=== PATIENT | female | born 1945 | race Caucasian/White ===

== ENCOUNTER → 2024-04-12 10:09 | Outpatient (REF) | payer OTHER, SELFPAY | LOC: HWWDC 10:09 | PROVIDERS: ATTENDING PHYSICIAN Registered Nurse | DX: M85.80 Other specified disorders of bone density and structure, unspecified site (principal); Z12.31 Encounter for screening mammogram for malignant neoplasm of breast | CPT/HCPCS: 77063; 77067; 77080 ==

== ENCOUNTER → 2024-04-15 06:23 | Outpatient (REF) | payer OTHER, SELFPAY ==
[2024-04-15 09:24] LABS: % Basophils 0.8 % (0-2); % Immature Granulocytes 0.2 % (0-0.5); % Lymphocytes 35.7 % (20.5-51.1); % Monocytes 8.2 % (1.7-9.3); % Neutrophils 53.1 % (42.2-75.2); Absolute Eosinophils 0.1 10^3/uL (0-0.7); Absolute Lymphocytes 1.8 10^3/uL (1.2-3.4); Absolute Monocytes 0.4 10^3/uL (0.1-0.6); Absolute Neutrophils 2.7 10^3/uL (1.4-6.5); Hematocrit 43.6 % (37.0-47.0); Hemoglobin 14.6 g/dL (12.0-16.0); Mean Corp Hgb Conc. 33.5 g/dL (33.0-37.0); Mean Corpuscular Hgb 32.8 pg (27.0-31.0); Mean Platelet Volume 8.6 fL (7.4-10.4); Nucleated Red Blood Cells % 0 %; Platelet Count 235 10^3/uL (130-400); Red Blood Cell Count 4.45 10^6/uL (4.20-5.40); Red Cell Dist. Width 13.1 % (11.5-14.5)
[2024-04-15 10:43] LABS: ALT (SGPT) 20 U/L (0-35); AST (SGOT) 28 U/L (14-36); Albumin 4.6 g/dl (3.5-5.0); Alkaline Phosphatase 71 U/L (38-126); Blood Urea Nitrogen 22 mg/dl (7-17); Carbon Dioxide 26 mmol/L (22-30); Chloride 103 mmol/L (98-107); Glucose 90 mg/dl (70-99); HDL Cholesterol 93 mg/dl; LDL Cholesterol, Calculated 115 mg/dl; Potassium 4.1 mmol/L (3.5-5.1); Sodium 140 mmol/L (135-145); Total Bilirubin 0.5 mg/dl (0.2-1.3); Total Cholesterol 227 mg/dl (50-199); Triglyceride 98 mg/dl (10-149); Very Low Density Lipoprotein 19 mg/dl (0-30); eGFR > 60.00
[2024-04-15 10:56] LABS: Vitamin D, 25-OH*** 44.7 ng/mL (30-80)
[2024-04-15 11:10] LABS: TSH Reflex To Free T4 2.13 uIU/ml (0.47-4.68)
[2024-04-17 15:05] LABS: Intact PTH 92.2 pg/ml (13.6-85.8)
== END ==
LOC: HWLAB 06:23
PROVIDERS: ATTENDING PHYSICIAN Registered Nurse
DX: E78.2 Mixed hyperlipidemia (principal); M85.80 Other specified disorders of bone density and structure, unspecified site
CPT/HCPCS: 36415; 80053; 80061; 82306; 83970; 84443; 85025

== ENCOUNTER → 2024-08-05 10:43 | Outpatient (REF) | payer OTHER, SELFPAY ==
[2024-08-05 15:31] LABS: ALT (SGPT) 20 U/L (0-35); AST (SGOT) 28 U/L (14-36); Albumin 4.4 g/dl (3.5-5.0); Alkaline Phosphatase 89 U/L (38-126); Blood Urea Nitrogen 21 mg/dl (7-17); Calcium 9.8 mg/dl (8.4-10.2); Carbon Dioxide 30 mmol/L (22-30); Chloride 98 mmol/L (98-107); Creatine Phosphokinase 63 U/L (30-135); Glucose 79 mg/dl (70-99); Potassium 4.2 mmol/L (3.5-5.1); Sodium 138 mmol/L (135-145); Total Bilirubin 0.5 mg/dl (0.2-1.3); eGFR > 60.00
[2024-08-05 15:35] LABS: C-Reactive Protein < 5.00 mg/L (0.0-10.00)
[2024-08-05 15:41] LABS: Erythrocyte Sed Rate 7 mm/hour (0-20)
[2024-08-05 15:52] LABS: Vitamin D, 25-OH*** 36.8 ng/mL (30-80)
== END ==
LOC: HWLAB 10:43
PROVIDERS: ATTENDING PHYSICIAN Registered Nurse
DX: M81.0 Age-related osteoporosis without current pathological fracture (principal); M79.604 Pain in right leg; M79.605 Pain in left leg; M79.10 Myalgia, unspecified site
CPT/HCPCS: 36415; 73523; 73552; 73564; 73590; 80053; 82306; 82550; 83970; 85652; 86140

== ENCOUNTER → 2025-04-13 06:40 | Outpatient (REF) | payer OTHER, SELFPAY ==
[2025-04-13 09:34] LABS: Hematocrit 44.7 % (37.0-47.0); Hemoglobin 13.8 g/dL (12.0-16.0); Mean Corp Hgb Conc. 30.9 g/dL (33.0-37.0); Mean Corpuscular Volume 100.2 fL (81.0-99.0); Nucleated Red Blood Cells % 0 %; Platelet Count 246 10^3/uL (130-400); Red Cell Dist. Width 12.9 % (11.5-14.5)
[2025-04-13 09:56] LABS: ALT (SGPT) 17 U/L (0-35); AST (SGOT) 27 U/L (14-36); Albumin 4.6 g/dl (3.5-5.0); Alkaline Phosphatase 58 U/L (38-126); Blood Urea Nitrogen 19 mg/dl (7-17); Calcium 9.0 mg/dl (8.4-10.2); Carbon Dioxide 28 mmol/L (22-30); Chloride 103 mmol/L (98-107); Glucose 85 mg/dl (70-99); HDL Cholesterol 78 mg/dl; LDL Cholesterol, Calculated 138 mg/dl; Potassium 4.1 mmol/L (3.5-5.1); Sodium 135 mmol/L (135-145); Total Protein 7.1 g/dl (6.3-8.2); Very Low Density Lipoprotein 20 mg/dl (0-30); eGFR > 60.00
[2025-04-13 10:41] LABS: Vitamin D, 25-OH*** 39.5 ng/mL (30-80)
== END ==
LOC: HWWDC 06:40
PROVIDERS: ATTENDING PHYSICIAN Registered Nurse
DX: Z12.31 Encounter for screening mammogram for malignant neoplasm of breast (principal); Z79.83 Long term (current) use of bisphosphonates; M81.0 Age-related osteoporosis without current pathological fracture; E78.2 Mixed hyperlipidemia
CPT/HCPCS: 36415; 77063; 77067; 80053; 80061; 82306; 83970; 84443; 85025